=== PATIENT | female | born 1990 | race Caucasian/White ===

== ENCOUNTER 2023-05-06 16:13 | Emergency (ER) | payer MEDICAID, OTHER ==
[~2023-05-06] VITALS: Ht 162 cm; Wt 82.5 kg
--- NOTE | 2023-05-06 16:44 | ED Lower Extremity ---
General Chief Complaint: Lower Extremity Stated Complaint: FALL/RIGHT KNEE INJURY Nursing Triage Note: PATIENT REPORTS TO ED FOR RIGHT KNEE PAIN. PER PATIENT SHE FELL ABOUT A WEEK AGO ON CONCRETE AND NOW IT'S POPPING OUT OF PLACE. PATIENT AMB. TO FT1 WITHOUT DIFFICULTY. Source: patient Exam Limitations: no limitations History of Present Illness Date Seen by Provider: May 06, 2023 Time Seen by Provider: 16:29 Initial Comments 32-year-old female presents to the ER with complaint of right knee pain. She states that she fell onto her knee 1 week ago on concrete. She states she feels as though her knee gives out on her when she walks. Reports increased pain with walking. Denies any numbness or tingling in her leg. Allergies and Home Medications Allergies Coded Allergies: ondansetron (Verified Allergy, Intermediate, RASH, 05/06/23) latex (Verified Allergy, Mild, RASH, 05/06/23) Patient Home Medication List Home Medication List Reviewed: Yes Review of Systems Constitutional: no symptoms reported Musculoskeletal: see HPI Past Sgfpxkv-Rqamhb-Cusglv Hx Patient Social History Tobacco Use?: Yes Smoking Status: Current Someday Smoker Use of E-Cig and/or Vaping dev: Yes E-Cig or Vaping type used: Nicotine Substance use?: Yes Substance type: Marijuana Substance frequency: Once in a while Alcohol Use?: Yes Alcohol type: Hard Liquor, Wine Alcohol Frequency: Once in a while Pt feels they are or have been: No Past Medical History Surgery/Hospitalization HX: MED. HX.-ASTHMA, PRE-DIABETIC, HTN SURG. HX.- TONSILS, TUBAL, AND GALLBLADDER Last Menstrual Period: Apr 28, 2023 Physical Exam Vital Signs Vital Signs - First Documented 05/06/23 16:20 Temp 36.5 Pulse 80 Resp 18 B/P (MAP) 117/77 (90) Pulse Ox 97 O2 Delivery Room Air Capillary Refill : Less Than 3 Seconds Height, Weight, BMI Height: '" Weight: lbs. oz. kg; 31.00 BMI Method: General Appearance: WD/WN, no apparent distress Neck: supple, normal inspection Cardiovascular: regular rate, rhythm Respiratory: lungs clear, normal breath sounds, no respiratory distress, no accessory muscle use Legs: right leg pain, right leg soft tissue tenderness Neurologic/Psychiatric: alert, normal mood/affect Skin: normal color, warm/dry Progress/Results/Core Measures Results/Orders My Orders Orders - PAUL RAY APRN Knee, Right, 3 Views (05/06/23 16:29) Hadley Bandage (05/06/23 17:05) Crutches (05/06/23 17:05) Vital Signs/I&O 05/06/23 05/06/23 16:20 17:20 Temp 36.5 36.9 Pulse 80 83 Resp 18 18 B/P (MAP) 117/77 (90) 110/73 Pulse Ox 97 97 O2 Delivery Room Air Room Air Blood Pressure Mean: 90 Progress Progress Note : Progress Note Patient seen and evaluated, resting comfortably in recliner, no acute distress. Based on exam and symptoms, x-ray of right knee ordered. 1705 x-ray reviewed. Negative for acute abnormality. Results discussed with patient. Will discharge with Hadley bandage and prescription for crutches. Patient instructed to follow-up with primary care provider if pain continues. Discharge instructions and return precautions provided. Diagnostic Imaging Diagonstic Imaging: Xray Plain Films/CT/US/NM/MRI: knee Comments [facility], [place] NAME: AMALIA MONTEMAYOR Tahira [facility] REC#: [id number] PT STATUS: REG ER : 1990 PHYSICIAN: PAUL RAY APRN ADMIT DATE: 05/06/23/ER Signed Date of Exam:05/06/23 KNEE, RIGHT, 3 VIEWS EXAM: KNEE, RIGHT, 3 VIEWS INDICATION: Right knee pain. Trauma. Fall onto concrete. COMPARISON: None. FINDINGS/ IMPRESSION: 1. No fracture or malalignment. 2. No joint effusion. 3. No radiopaque foreign bodies or soft tissue gas. Dictated by: Dictated on workstation # [id number] Dict: 05/06/231642 Trans: 05/06/238 [facility] [id number] Interpreted by: MARGARET GAITAN MD Electronically signed by: MARGARET GAITAN MD 05/06/238 Departure Impression Primary Impression: Sprain of knee Disposition: 01 HOME, SELF-CARE Condition: Stable Departure-Patient Inst. Decision time for Depature: 17:11 Referrals: [facility] Patient Instructions: Knee Sprain (DC) Add. Discharge Instructions: Wear the Hadley bandage for compression. Use the crutches to keep weight off of your knee. You will need to take the prescription to the pharmacy or the [facility] [place] Ice your knee for 20 minutes at a time several times a day. Elevate your knee above the level of your heart as often as possible. You may take 800 mg of ibuprofen every 8 hours with food as needed for pain. You may also take 1000 mg of Tylenol every 8 hours as needed for pain. Follow-up with your primary care provider if your pain continues. Return for any new, concerning, or worsening symptoms. All discharge instructions reviewed with patient and/or family. Voiced understanding. PAUL RAY APRN May 06, 2023 16:44
--- NOTE | 2023-05-06 16:49 | Diagnostic Imaging Report ---
EXAM: KNEE, RIGHT, 3 VIEWS INDICATION: Right knee pain. Trauma. Fall onto concrete. COMPARISON: None. FINDINGS/ IMPRESSION: 1. No fracture or malalignment. 2. No joint effusion. 3. No radiopaque foreign bodies or soft tissue gas. Dictated by: Dictated on workstation # [id number]
[2023-05-06 17:20] VITALS: BP 110/73
== END 2023-05-06 17:20 | disposition home or self-care (01) ==
LOC: ER 16:17
DX: S83.91XA Sprain of unspecified site of right knee, initial encounter (principal); F17.290 Nicotine dependence, other tobacco product, uncomplicated; Z91.040 Latex allergy status; W19.XXXA Unspecified fall, initial encounter
CPT/HCPCS: 73562

== ENCOUNTER 2023-05-11 12:30 | Emergency (ER) | payer MEDICAID ==
[~2023-05-11] VITALS: Ht 162 cm; Wt 83.0 kg
[2023-05-11] MEDS ORDERED: ACETAMINOPHEN 500 MG TAB (TYLENOL) PO STA (13:45)
--- NOTE | 2023-05-11 13:51 | ED Lower Extremity ---
General Chief Complaint: Lower Extremity Stated Complaint: INJ RIGHT KNEE Nursing Triage Note: pt presents to ed via pov from home with complaints of continued r knee pain since falling over a baby gate 3 days ago. pt reports she was seen in ed for initial injury and told it was a sprain but reports no improvement. History of Present Illness Date Seen by Provider: May 11, 2023 Time Seen by Provider: 13:15 Initial Comments 32 year old female evaluated for right knee pain. Previous visit for same concern at this ED on 05/06/2023, with x-ray findings normal. She hit the right knee on a baby gate, then tripped over the gate and fell onto her right knee. She has been able to continue working, she has been using the Tylenol and ibuprofen with her last dose of ibuprofen at approximately 0530 this morning. She is using crutches however she forgot to bring them with her today. She has two 4in Hadley wrap on her right knee. No new injuries. She denies having a PCP. Pain/Injury Location: right knee Method of Injury: fell Allergies and Home Medications Allergies Coded Allergies: ondansetron (Verified Allergy, Intermediate, RASH, 05/06/23) latex (Verified Allergy, Mild, RASH, 05/06/23) Patient Home Medication List Home Medication List Reviewed: Yes Review of Systems Constitutional: no symptoms reported, see HPI Musculoskeletal: see HPI, joint pain (right knee) Skin: no symptoms reported, see HPI All Other Systems Reviewed Negative Unless Noted: Yes Past Hqcjfvc-Ziqlvy-Dqrebw Hx Patient Social History Tobacco Use?: No Smokeless Tobacco Frequency: Current Someday User Substance use?: Yes Substance type: Marijuana Substance frequency: Once in a while Alcohol Use?: Yes Alcohol Frequency: Once in a while Pt feels they are or have been: No Past Medical History Surgery/Hospitalization HX: MED. HX.-ASTHMA, PRE-DIABETIC, HTN SURG. HX.- TONSILS, TUBAL, AND GALLBLADDER Family Medical History Reviewed Nursing Family Hx Physical Exam Vital Signs Vital Signs - First Documented 05/11/23 05/11/23 13:06 14:06 Temp 35.9 Pulse 82 Resp 18 B/P (MAP) 116/82 (93) Pulse Ox 99 O2 Delivery Room Air Capillary Refill : Less Than 3 Seconds Height, Weight, BMI Height: '" Weight: lbs. oz. kg; 31.00 BMI Method: General Appearance: WD/WN Cardiovascular: normal peripheral pulses, regular rate, rhythm Respiratory: chest non-tender, lungs clear, normal breath sounds Knees: right knee normal range of motion, right knee bone tenderness (lateral aspect), right knee joint effusion (small), right knee pain (anterior), right knee soft tissue tenderness (anterior), right knee other (no instability right knee, neg kiara/ant drawer.) Neurologic/Psychiatric: no motor/sensory deficits, alert, normal mood/affect, oriented x 3 Skin: ecchymosis (anterior right knee, reports present since the injury) Progress/Results/Core Measures Results/Orders My Orders Orders - LUIS FELIPEMARIA ALEJANDRA Acetaminophen Tablet (Tylenol Tablet) (05/11/23 13:45) Vital Signs/I&O 05/11/23 05/11/23 13:06 14:06 Temp 35.9 Pulse 82 65 Resp 18 B/P (MAP) 116/82 (93) 111/73 Pulse Ox 99 100 O2 Delivery Room Air Blood Pressure Mean: 93 Departure Impression Primary Impression: Right knee pain Qualified Codes: M25.561 - Pain in right knee Additional Impression: Contusion of right knee Qualified Codes: S80.01XD - Contusion of right knee, subsequent encounter Disposition: HOME, SELF-CARE Condition: Improved Departure-Patient Inst. Decision time for Depature: 13:30 Referrals: [facility]/MARVIN MALONE,LOCAL PHYSICIAN (PCP) Primary Care Physician RUBY CASEY MD, MICHAEL P MD Patient Instructions: Knee Sprain (DC), Knee Pain (DC) Add. Discharge Instructions: Continue to use crutches for ambulation. Alternate between Tylenol 650 mg and ibuprofen 600 mg every 4 hours for pain. Use the Hadley wrap to your right knee. Establish care with [facility] or if your insurance allows you may see orthopedics if symptoms are not improving in 4 to 6 weeks. It is common for you to have pain in the knee for 3-4 weeks, but you should notice slow, steady improvement. If it is not improving, an MRI is the next step and that will need to be scheduled outpatient through primary care or orthopedics. We do not order MRIs in the ER for knee problems like you are experiencing. Return to the emergency department for new, urgent healthcare needs. All discharge instructions reviewed with patient and/or family. Voiced understanding. MARIA ALEJANDRA BRISCOE [facility] May 11, 2023 13:51
[2023-05-11 14:06] VITALS: BP 111/73
== END 2023-05-11 14:09 | disposition home or self-care (01) ==
LOC: EDUNIT# 12:30 → ER 12:32
DX: S80.01XA Contusion of right knee, initial encounter (principal); F17.200 Nicotine dependence, unspecified, uncomplicated; Z91.040 Latex allergy status; Z28.310 Unvaccinated for COVID-19; W01.198A Fall on same level from slipping, tripping and stumbling with subsequent striking against other object, initial encounter
CPT/HCPCS: 99283

== ENCOUNTER 2023-07-14 21:22 | Emergency (ER) | payer MEDICAID ==
[~2023-07-14] VITALS: Ht 170 cm; Wt 79.0 kg
--- NOTE | 2023-07-14 22:02 | ED Cough/URI ---
General Chief Complaint: Oral/Throat Problems Stated Complaint: SORE THROAT/LOSS OF TASTE AND SMELL Nursing Triage Note: PATIENT AMBULATORY TO ROOM WITH COMPLAINT OF SORE THROAT STARTING YESTERDAY, LOSS OF TASE AND SMELL, COUGH, AND FEELING LIGHT HEADED TODAY. PATIENT DENIES BEING AROUND ANYONE WHO IS COVID POSITIVE Source: patient History of Present Illness Date Seen by Provider: Jul 14, 2023 Time Seen by Provider: 21:50 Initial Comments PT ARRIVES VIA POV FROM HOME WITH A MALE PT STATES SHE BEGAN GETTING SICK YESTERDAY WITH: -NASAL CONGESTION -SLIGHT COUGH -SORE THROAT -LOSS OF TASTE AND SMELL -FELT A LITTLE LIGHTHEADED TODAY SHE DOES NOT KNOW IF SHE HAS HAD FEVER OR NOT, BUT NO SWEATS OR CHILLS NO GI SYMPTOMS NO SHORTNESS OF BREATH OR WHEEZING NO HEADACHE NO BODY ACHES PT IS NOT COVID OR FLU VACCINATED NO KNOWN SICK CONTACTS SHE TOOK IBUPROFEN YESTERDAY X 1 AND TOOK AN UNKNOWN COLD MEDICATION X 1 TODAY PCP; [facility] Allergies and Home Medications Allergies Coded Allergies: ondansetron (Verified Allergy, Intermediate, RASH, 05/06/23) latex (Verified Allergy, Mild, RASH, 05/06/23) Patient Home Medication List Home Medication List Reviewed: Yes Review of Systems Review of Systems Constitutional: see HPI, dizziness EENTM: see HPI Respiratory: see HPI Cardiovascular: no symptoms reported Gastrointestinal: no symptoms reported Genitourinary: no symptoms reported Musculoskeletal: no symptoms reported Skin: no symptoms reported Psychiatric/Neurological: No Symptoms Reported Hematologic/Lymphatic: No Symptoms Reported Immunological/Allergic: no symptoms reported Past Uxlbioe-Bnfakp-Wrsysz Hx Patient Social History Tobacco Use?: No Substance use?: No Alcohol Use?: No Past Medical History Surgery/Hospitalization HX: MED. HX.-ASTHMA, PRE-DIABETIC, HTN SURG. HX.- TONSILS, TUBAL, AND GALLBLADDER Surgeries: Yes Gallbladder, Tonsillectomy, Tubal Ligation Respiratory: Yes Asthma Cardiac: Yes Hypertension Neurological: No Genitourinary: No Gastrointestinal: No Musculoskeletal: No Endocrine: No HEENT: No Cancer: No Psychosocial: No Integumentary: No Blood Disorders: No Physical Exam Vital Signs - First Documented 07/14/23 21:38 Temp 36.6 Pulse 75 Resp 20 B/P (MAP) 112/80 (91) Pulse Ox 99 O2 Delivery Room Air Capillary Refill : Less Than 3 Seconds Height: '" Weight: lbs. oz. kg; 27.00 BMI Method: General Appearance: WD/WN, no apparent distress, other (DOES NOT APPEAR ILL OR TO BE IN ANY DISCOMFORT OR DISTRESS.) HEENT: PERRL/EOMI, TMs normal, pharynx normal, other (MILD NASAL CONGESTION) Neck: normal inspection Respiratory: normal breath sounds, no respiratory distress, no accessory muscle use Cardiovascular: regular rate, rhythm, no murmur Gastrointestinal: non tender Extremities: normal inspection, normal capillary refill Neurologic/Psychiatric: bulk sugar handler II-XII nml as tested, no motor/sensory deficits, alert, normal mood/affect, oriented x 3 Skin: normal color, warm/dry Progress/Results/Core Measures Suspected Sepsis SIRS Temperature: Pulse: 75 Respiratory Rate: 20 Blood Pressure 112 /80 Mean: 91 Results/Orders Lab Results Laboratory Tests Test 07/14/23 21:44 Range/Units Influenza Type A (RT-PCR) Not Detected Not Detecte Influenza Type B (RT-PCR) Not Detected Not Detecte SARS-CoV-2 RNA (RT-PCR) Detected H Not Detecte Group A Streptococcus Screen Not Detected NotDetected My Orders Orders - KATIUSKA HARDY DO Rapid Strep A Screen (07/14/23 21:50) Covid 19 Inhouse Test (07/14/23 21:50) Influenza A And B By Pcr (07/14/23 21:50) Vital Signs/I&O 07/14/23 07/14/23 21:38 22:33 Temp 36.6 36.6 Pulse 75 75 Resp 20 20 B/P (MAP) 112/80 (91) 112/80 Pulse Ox 99 99 O2 Delivery Room Air Room Air Capillary Refill : Less Than 3 Seconds Blood Pressure Mean: 91 Progress Note : Progress Note PLACED IN ISOLATION ROOM PPE WORN VITALS ON ARRIVAL: TEMP 36.6=97.8, HR 75, RR 20, BP 112/80, O2 SAT 99% ON ROOM AIR FLU NEGATIVE COVID POSITIVE UNEVENTFUL ER STAY NO COUGH NO DYSPNEA NO HYPOXIA NO FEVER DURING ER STAY PT'S SYMPTOMS ARE VERY MILD, DOES NOT WARRANT ANTIVIRAL THERAPY AT THIS TIME SHE HAS HISTORY OF ASTHMA BUT IT IS VERY MILD AND RARELY USES AN INHALER AND HAS NOT USED IT RECENTLY. DISCUSSED TEST RESULTS, ANTICIPATED COURSE, SYMPTOMATIC TREATMENT, QUARANTINE, NEED FOR FOLLOW UP AND RETURN PRECAUTIONS WORK NOTE GIVEN--PT WORKS AT [employer] Departure Impression Primary Impression: COVID-19 virus infection Disposition: 01 HOME, SELF-CARE Condition: Stable Departure-Patient Inst. Decision time for Depature: 22:29 Referrals: [facility] Patient Instructions: COVID-19 (DC), Preventing the Spread of an Infectious Disease Add. Discharge Instructions: HOME, REST QUARANTINE FOR 10 DAYS TYLENOL AND MOTRIN NEEDED FOR PAIN OR FEVER LOTS OF CLEAR LIQUIDS OVER THE COUNTER MEDICATIONS FOR COUGH AND CONGESTION FOLLOW UP WITH [facility] IN 5-7 DAYS IF NO BETTER, RETURN TO ER IF YOU DEVELOP DIFFICULTY BREATHING All discharge instructions reviewed with patient and/or family. Voiced understanding. Work/School Note: Family Work Note, Work Release Form Date Seen in the Emergency Department: Jul 14, 2023 Return to Work: Jul 24, 2023 KATIUSKA HARDY DO Jul 14, 2023 22:02
[2023-07-14 22:33] VITALS: BP 112/80
== END 2023-07-14 22:33 | disposition home or self-care (01) ==
LOC: EDUNIT# 21:22 → ER 21:25
DX: U07.1 COVID-19 (principal); R43.8 Other disturbances of smell and taste; R09.81 Nasal congestion; R42 Dizziness and giddiness; Z91.040 Latex allergy status
CPT/HCPCS: 87430; 87636; 99283